=== PATIENT | female | born 1990 | race African-American/Black ===

== ENCOUNTER 2019-08-15 23:13 | Emergency (ER) | payer OTHER ==
[~2019-08-15] VITALS: Ht 170.2 cm; Wt 70.3 kg
--- NOTE | 2019-08-15 23:23 | NUR ---
ED Nurse Note: Pt walked in c/o left 5th finger pain and lac, pt states she was run over by the iceskating shoes. VSS, NAD, will continue to monitor.
--- NOTE | 2019-08-15 23:26 | NUR ---
ED Nurse Note: Patient wound cleaned and prepared to be seen by ERMD.
[2019-08-15 23:28] VITALS: BP 114/68
--- NOTE | 2019-08-15 23:43 | NUR ---
ED Nurse Note: ERMD at bedside.
[2019-08-15] MEDS ORDERED: Bupivacaine 0.5% Inj 30 ml vial INJ ONE (23:47)
[2019-08-16] MEDS ORDERED: Bupivacaine 0.5% Inj 30 ml vial INJ ONE
--- NOTE | 2019-08-16 00:13 | NUR ---
ED Nurse Note: ERMD at bedside performing suture. Apply ointment and dressing per ERMD order.
[2019-08-16] MEDS ORDERED: Cephalexin 500mg cap ORAL ONE (00:15)
[2019-08-16] MEDS ORDERED: IBUPROFEN600 MG ORAL ×2 (00:18→00:25)
[2019-08-16] MEDS ORDERED: CEPHALEXIN500 MG ORAL ×2 (00:18→00:25)
--- NOTE | 2019-08-16 00:20 | NUR ---
ED Nurse Note: Removed two packets of bacitracin via override per ERMD order.
[2019-08-16] MEDS ORDERED: Bacitracin Oint UD TOPIC ONE ×2 (00:22→00:30)
[2019-08-16] MEDS ORDERED: Neosporin Oint Ud Pkt TOPIC ONE (00:30)
--- NOTE | 2019-08-16 00:30 | NUR ---
ER DISCHARGE NOTE: Patient is cleared to be discharged per ERMD, pt is aox4, on room air, with stable vital signs. pt was given dc and prescription instructions, pt was able to verbalize understanding, pt id band removed without complications. pt is able to ambulate with steady gait. pt took all belongings.
--- NOTE | 2019-08-16 01:29 | Emergency Room Report ---
History of Present Illness General Chief Complaint: Laceration Source: Patient Present Illness HPI Patient is a 29-year-old female presents after increased pain to her left small finger. Patient had injury while ice skating. She reports having increased pain to her finger. She denies any numbness to the tip of the finger. Injury occurred 1 hour prior to arrival. She denies any other locations of injury. She reports having prior tetanus vaccine 1 year ago. Denies any prior medical conditions. She denies being .Patient is right-hand dominant. Allergies: Coded Allergies: No Known Allergies (Unverified , 08/15/19) Patient History Past Medical History: see triage record Now: No Reviewed Nursing Documentation: PMH: Agreed; PSxH: Agreed Nursing Documentation-PMH Past Medical History: No Stated History Review of Systems All Other Systems: negative except mentioned in HPI Physical Exam Vital Signs Date Time Temp Pulse Resp B/P (MAP) Pulse Ox O2 Delivery O2 Flow Rate FiO2 08/15/19 23:19 98.4 92 18 98 Room Air 08/15/19 23:28 114/68 General Appearance: well appearing, no apparent distress, alert, GCS 15 Head: normocephalic, atraumatic ENT: hearing grossly normal, normal voice Neck: full range of motion, supple Respiratory: no respiratory distress, speaking full sentences Cardiovascular #1: normal inspection, regular rate, rhythm Musculoskeletal: other - laceration 1 cm left small finger Neurologic: normal gait Psychiatric: mood/affect normal Skin: laceration - laceration 1cm flap Procedures Laceration/Wound Repair Laceration/Wound Repair : Wound Location: upper extremity Wound's Depth, Shape: superficial Wound Length (cm): 1 Irrigated w/ Saline (ccs): 1 Betadine Prep?: Yes Anesthesia: 0.5% Sensorcaine Volume Anesthetic (ccs): 1 Wound Debrided: minimal Wound Repaired With: sutures Suture Size/Type: 5:0 Number of Sutures: 3 Layer Closure?: No Sterile Dressing Applied?: Yes Patient Tolerated: Well Complications: None Medical Decision Making Diagnostic Impression: Primary Impression: Laceration ER Course Patient presented for laceration. Differential diagnosis includes not limited to foreign body, nerve injury, among others. Patient has a benign exam and does not appear to require any imaging or laboratory testing at this time. Patient's laceration appears to be flap to the left small finger. Laceration was copiously irrigated. Was closed with nylon suture. Patient was advised suture movable in 10 to 14 days. She was given prescription for pain medications as well as antibiotics. Advised to have wound rechecked in 3 to 4 days she is advised return if worse. Last Vital Signs Date Time Temp Pulse Resp B/P (MAP) Pulse Ox O2 Delivery O2 Flow Rate FiO2 08/16/19 00:30 97.8 08/15/19 23:28 78 18 114/68 98 Room Air Status: improved Disposition: HOME, SELF-CARE Condition: Stable Scripts Ibuprofen* (MOTRIN*) 600 Mg Tablet 600 MG ORAL Q6H PRN for For Pain, #20 TAB 0 Refills Prov: Shawn Beach MD 08/16/19 Cephalexin* (KEFLEX*) 500 Mg Capsule 500 MG ORAL EVERY 6 HOURS, #28 CAP Prov: Shawn Beach MD 08/16/19 Referrals: [facility],REFERR[facility] (PCP) Patient Instructions: Laceration Care, Adult Additional Instructions: Suture removal in 10-14 days. Wound check in 3-4 days. Shawn Beach MD Aug 16, 2019 01:29
== END 2019-08-16 00:30 | disposition home or self-care (01) ==
LOC: EMR 23:59
DX: S61.217A Laceration without foreign body of left little finger without damage to nail, initial encounter (principal); Y93.21 Activity, ice skating; Y92.9 Unspecified place or not applicable
CPT/HCPCS: 12001; 99283; J3490